=== PATIENT | female | born 1995 | race Caucasian/White ===

== ENCOUNTER 2017-07-29 22:25 | Observation (INO) | payer OTHER ==
[2017-07-29 23:19] LABS: Appearance,Urine Turbid (Clear); Bilirubin,Urine Negative (Negative); Glucose,Urine (UA) Negative (Negative); Ketones,Urine Negative (Negative); Leukocyte Esterase,Urine Large (Negative); Nitrite,Urine Negative (Negative); Particle Count 8803; Protein,Urine Negative (Negative); RBC,Urine 3 /hpf (0-5); Specific Gravity,Urine 1.016 (1.001-1.035); Squamous Epithelial Cell,Urine 49 /hpf (0-4); UA Billing (MACRO vs. MICRO) MICRO; Urobilinogen,Urine <2.0 mg/dL (<2.0); WBC,Urine 18 /hpf (0-5)
[2017-07-29] MEDS ORDERED: ONDANSETRON 4 MG/2 ML VIAL IVP STA (23:23)
[2017-07-29] MEDS ORDERED: SODIUM CHLORIDE 0.9% 500 ML IV STA (23:23)
[2017-07-29] MEDS ORDERED: MORPHINE SULFATE 10 MG/ML SYRINGE IVP ONE (23:23)
[2017-07-29 23:52] LABS: Basophils # (A) 0.1 k/uL (0-0.2); Basophils % (A) 1 %; CH 30.3; CHCM 33.3; Eosinophils # (A) 0.2 k/uL (0-0.7); Eosinophils % (A) 3 %; HDW 2.53; HGB 13.1 gm/dL (11.4-16.0); Luc # (Auto) 0.26; Luc % (Auto) 4; Lymphocytes # (A) 1.1 k/uL (1.0-4.8); Lymphocytes % (A) 15 %; MCH 29.9 pg (25.0-35.0); MCHC 32.7 g/dL (31.0-37.0); MCV 91.4 fL (80.0-100.0); Mean Platelet Volume 7.2; Monocytes # (A) 0.5 k/uL (0-1.0); Monocytes % (A) 7 %; Neutrophils % (A) 71 %; RBC 4.38 m/uL (3.80-5.40); RDW 12.4 % (11.5-15.5); WBC (Perox) 6.82
[2017-07-29 23:59] LABS: ALT 29 U/L (9-52); AST 20 U/L (14-36); Alkaline Phosphatase 51 U/L (38-126); Amylase 40 U/L (30-110); Anion Gap 10 mmol/L; Blood Urea Nitrogen 13 mg/dL (7-17); Calcium 9.8 mg/dL (8.4-10.2); Carbon Dioxide 26 mmol/L (22-30); Chloride 104 mmol/L (98-107); Glucose 97 mg/dL (74-99); Non-African American GFR(MDRD) >60 (>60 ml/min/1.73 sqM); Potassium 3.8 mmol/L (3.5-5.1); Sodium 140 mmol/L (137-145); Total Bilirubin 0.5 mg/dL (0.2-1.3); Total Protein 7.6 g/dL (6.3-8.2)
--- NOTE | 2017-07-30 00:11 | XR ---
EXAMINATION TYPE: XR KUB DATE OF EXAM: 07/29/2017 COMPARISON: NONE HISTORY: Abdominal pain for 2 days TECHNIQUE: 2 views FINDINGS: Bowel gas pattern is normal. There is no sign of intestinal obstruction or pneumoperitoneum . Fecal pattern is normal. There are no pathologic calcifications. Bony structures are intact. IMPRESSION: Nonacute abdomen.
--- NOTE | 2017-07-30 00:33 | ED ---
Abdominal Pain HPI - General Source: patient Mode of arrival: ambulatory Limitations: no limitations <Maggie Morgan - Last Filed: 07/30/17 02:37> <BismarksarinaRobbie - Last Filed: 07/30/17 03:03> - General Chief Complaint: Abdominal Pain Stated Complaint: Abd Pain Time Seen by Provider: 07/29/17 23:03 - History of Present Illness Initial Comments: 22-year-old female patient presents to the emergency department today for complaints of abdominal pain. Patient states that symptoms started approximately 3 days ago. States that the pain is periumbilical. She states it is sharp in nature. She states initially the pain was intermittent however for the last 3 hours the pain has been constant. She is currently rating it a 7 out of 10 on a pain scale. She denies ever having pain similar to this before. She states that she did go to urgent care yesterday and was diagnosed with constipation. She states that they did give her MiraLAX and another pill for gas. She states that she has taken 3 doses of the MiraLAX, has been having soft bowel movements, and her pain has persisted. She states that she has had blood in her stool this evening. She states she has been having soft bowel movements up to six times per day for the last few weeks, and now is passing only "red" stool. She states today she has been nauseated however has not vomited. She has been able to tolerate oral intake today. She denies any rectal pain or history of hemorrhoids. Patient denies any recent rash, fever, chills, shortness breath, chest pain, abdominal pain, nausea, vomiting, diarrhea , constipation, back pain, numbness, tingling, dizziness, weakness, hematuria, dysuria, urinary urgency, urinary frequency, headache, visual changes, or any other complaints. Patient's last menstrual period was 2 weeks ago. She denies any sick contacts or recent travel. (Maggie Morgan) - Related Data Home Medications Medication Instructions Recorded Confirmed No Known Home Medications [No 07/29/17 07/29/17 Known Home Medications] Allergies Allergy/AdvReac Type Severity Reaction Status Date / Time Penicillins Allergy Rash/Hives Verified 07/29/17 22:35 Review of Systems ROS Other: All systems not noted in ROS Statement are negative. <Maggie Morgan - Last Filed: 07/30/17 02:37> ROS Other: All systems not noted in ROS Statement are negative. <Robbie Jon - Last Filed: 07/30/17 03:03> ROS Statement: Those systems with pertinent positive or pertinent negative responses have been documented in the HPI. Past Medical History Past Medical History: No Reported History History of Any Multi-Drug Resistant Organisms: None Reported Past Surgical History: Tonsillectomy Past Psychological History: No Psychological Hx Reported Smoking Status: Never smoker Past Alcohol Use History: Occasional Past Drug Use History: None Reported <Maggie Morgan M - Last Filed: 07/30/17 02:37> General Exam Limitations: no limitations General appearance: alert, in no apparent distress, other (This is a well- developed, well-nourished adult female patient in no acute distress. Vital signs upon presentation were temperature 98.1F, pulse 100, respirations 18, blood pressure 139/80, pulse ox 98% on room air.) Eye exam: Present: normal appearance, PERRL, EOMI. Absent: scleral icterus, conjunctival injection, periorbital swelling ENT exam: Present: normal exam, normal oropharynx, mucous membranes moist Respiratory exam: Present: normal lung sounds bilaterally. Absent: respiratory distress, wheezes, rales, rhonchi, stridor Cardiovascular Exam: Present: regular rate, normal rhythm, normal heart sounds. Absent: systolic murmur, diastolic murmur, rubs, gallop, clicks GI/Abdominal exam: Present: soft, normal bowel sounds. Absent: distended, tenderness, guarding, rebound, rigid Back exam: Present: normal inspection. Absent: CVA tenderness (R), CVA tenderness (L) Neurological exam: Present: alert, oriented X3, CN II-XII intact Psychiatric exam: Present: normal affect, normal mood Skin exam: Present: warm, dry, intact, normal color. Absent: rash <Maggie Morgan M - Last Filed: 07/30/17 02:37> Vital Signs 07/29/17 07/30/17 22:33 02:57 Temperature 98.1 F Pulse Rate 100 87 Respiratory 18 18 Rate Blood Pressure 139/80 136/64 O2 Sat by Pulse 98 100 Oximetry Medical Decision Making - Lab Data Result diagrams: 07/29/17 23:30 07/29/17 23:30 - Radiology Data Radiology results: report reviewed, image reviewed <Maggie Morgan - Last Filed: 07/30/17 02:37> - Lab Data Result diagrams: 07/29/17 23:30 07/29/17 23:30 <Robbie Jon - Last Filed: 07/30/17 03:03> - Medical Decision Making 22-year-old female patient presents to the emergency department today for evaluation of diffuse abdominal pain 3 days. Patient also reported having frequent soft bowel movements daily over the last few weeks that turn to red colored stool today. Physical exam revealed diffuse abdominal tenderness with no guarding or rebound. Labs were unremarkable. Urinalysis was contaminated but culture was sent. KUB x-ray of the abdomen shows overall nonobstructive bowel gas pattern. CT of the abdomen and pelvis did show evidence of inflammatory changes and adenopathy involving the cecum with surrounding minimal fluid, however there was no bowel wall thickening to suggest inflammatory bowel disease so it is felt to be related to appendicitis. Appendix was upper limits of normal at [address] Jon did see and evaluate the patient. He did speak to Dr. Montgomery who accepts patient. We will start patient on IV IV Flagyl and Levaquin. We will provide pain and nausea management for her. (Maggie Morgan) 22-year-old female with no significant past medical history presents for evaluation of abdominal pain. Patient states she's had multiple soft bowel movements over the past 3 days. Abdominal pain is generalized. On examination patient is well-appearing, stable vital signs. She has mild diffuse tenderness to palpation, no rebound or guarding. Patient does have right lower quadrant tenderness, however her most significant tenderness is central epigastric. Laboratory studies reveal normal white blood cell count, stable hemoglobin. Hemoccult is positive, rectal exam reveals brown stool no gt blood. CT is obtained, this shows an 8 millimeter appendix with adjacent inflammatory changes and adenopathy. Patient is started on IV antibiotics, she will be admitted for surgical evaluation of appendicitis. (Robbie Jon) - Lab Data Lab Results 07/29/17 07/29/17 07/29/17 Range/Units 23:00 23:00 23:30 WBC (3.8-10.6) k/uL RBC (3.80-5.40) m/uL Hgb (11.4-16.0) gm/dL Hct (34.0-46.0) % MCV (80.0-100.0) fL MCH (25.0-35.0) pg MCHC (31.0-37.0) g/dL RDW (11.5-15.5) % Plt Count (150-450) k/uL Neutrophils % % Lymphocytes % % Monocytes % % Eosinophils % % Basophils % % Neutrophils # (1.3-7.7) k/uL Lymphocytes # (1.0-4.8) k/uL Monocytes # (0-1.0) k/uL Eosinophils # (0-0.7) k/uL Basophils # (0-0.2) k/uL Sodium 140 (137-145) mmol/L Potassium 3.8 (3.5-5.1) mmol/L Chloride 104 (98-107) mmol/L Carbon Dioxide 26 (22-30) mmol/L Anion Gap 10 mmol/L BUN 13 (7-17) mg/dL Creatinine 0.70 (0.52-1.04) mg/dL Est GFR (MDRD) Af Amer >60 (>60 ml/min/1.73 sqM) Est GFR (MDRD) Non-Af >60 (>60 ml/min/1.73 sqM) Glucose 97 (74-99) mg/dL Calcium 9.8 (8.4-10.2) mg/dL Total Bilirubin 0.5 (0.2-1.3) mg/dL AST 20 (14-36) U/L ALT 29 (9-52) U/L Alkaline Phosphatase 51 (38-126) U/L Total Protein 7.6 (6.3-8.2) g/dL Albumin 4.7 (3.5-5.0) g/dL Amylase 40 (30-110) U/L Lipase 159 (23-300) U/L Urine Color Light Yellow Urine Appearance Turbid H (Clear) Urine pH 6.0 (5.0-8.0) Ur Specific [place] 1.016 (1.001-1.035) Urine Protein Negative (Negative) Urine Glucose (UA) Negative (Negative) Urine Ketones Negative (Negative) Urine Blood Negative (Negative) Urine Nitrite Negative (Negative) Urine Bilirubin Negative (Negative) Urine Urobilinogen <2.0 (<2.0) mg/dL Ur Leukocyte Esterase Large H (Negative) Urine RBC 3 (0-5) /hpf Urine WBC 18 H (0-5) /hpf Ur Squamous Epith Cells 49 H (0-4) /hpf Urine HCG, Qual Not Detected (Not Detectd) Stool Occult Blood (Negative) 07/29/17 07/30/17 Range/Units 23:30 00:26 WBC 7.0 (3.8-10.6) k/uL RBC 4.38 (3.80-5.40) m/uL Hgb 13.1 (11.4-16.0) gm/dL Hct 40.0 (34.0-46.0) % MCV 91.4 (80.0-100.0) fL MCH 29.9 (25.0-35.0) pg MCHC 32.7 (31.0-37.0) g/dL RDW 12.4 (11.5-15.5) % Plt Count 210 (150-450) k/uL Neutrophils % 71 % Lymphocytes % 15 % Monocytes % 7 % Eosinophils % 3 % Basophils % 1 % Neutrophils # 5.0 (1.3-7.7) k/uL Lymphocytes # 1.1 (1.0-4.8) k/uL Monocytes # 0.5 (0-1.0) k/uL Eosinophils # 0.2 (0-0.7) k/uL Basophils # 0.1 (0-0.2) k/uL Sodium (137-145) mmol/L Potassium (3.5-5.1) mmol/L Chloride (98-107) mmol/L Carbon Dioxide (22-30) mmol/L Anion Gap mmol/L BUN (7-17) mg/dL Creatinine (0.52-1.04) mg/dL Est GFR (MDRD) Af Amer (>60 ml/min/1.73 sqM) Est GFR (MDRD) Non-Af (>60 ml/min/1.73 sqM) Glucose (74-99) mg/dL Calcium (8.4-10.2) mg/dL Total Bilirubin (0.2-1.3) mg/dL AST (14-36) U/L ALT (9-52) U/L Alkaline Phosphatase (38-126) U/L Total Protein (6.3-8.2) g/dL Albumin (3.5-5.0) g/dL Amylase (30-110) U/L Lipase (23-300) U/L Urine Color Urine Appearance (Clear) Urine pH (5.0-8.0) Ur Specific [place] (1.001-1.035) Urine Protein (Negative) Urine Glucose (UA) (Negative) Urine Ketones (Negative) Urine Blood (Negative) Urine Nitrite (Negative) Urine Bilirubin (Negative) Urine Urobilinogen (<2.0) mg/dL Ur Leukocyte Esterase (Negative) Urine RBC (0-5) /hpf Urine WBC (0-5) /hpf Ur Squamous Epith Cells (0-4) /hpf Urine HCG, Qual (Not Detectd) Stool Occult Blood Positive H (Negative) - Radiology Data 2 views of the abdomen showed bowel gas pattern is normal. There is no sign of intestinal obstruction or pneumoperitoneum. Fecal pattern is normal. There is no pathological calcifications. Bony structures are intact. Impression by Dr. South shows nonacute abdomen. CT of the abdomen and pelvis with contrast report reviewed in its entirety. Impression by Dr. South shows appendix is upper limit of normal size. There is however evidence of inflammatory changes and adenopathy involving the cecum with surrounding minimal fluid. I see no intestinal wall thickening to suggest inflammatory bowel disease and therefore this appearance is most likely related to appendicitis. (Maggie Morgan) Disposition Decision to Admit Reason: Admit from EC Decision Date: 07/30/17 Decision Time: 02:25 <Maggie Morgan - Last Filed: 07/30/17 02:37> <Robbie Jon - Last Filed: 07/30/17 03:03> Clinical Impression: Appendicitis Disposition: ADMITTED IP TO THIS [facility] Condition: Serious
[2017-07-30] MEDS ORDERED: RX INFO: IV CONTRAST WAS GIVEN 1 EACH MISC MISCELLANE PRN (00:53)
[2017-07-30] MEDS ORDERED: methylPREDNISolone SOD SUCCI 125 MG/2 ML VIAL IV STA (00:53)
[2017-07-30] MEDS ORDERED: MORPHINE SULFATE 10 MG/ML SYRINGE IVP ONE (01:14)
--- NOTE | 2017-07-30 01:30 | CT ---
EXAMINATION TYPE: CT abdomen pelvis w con DATE OF EXAM: 07/30/2017 COMPARISON: NONE HISTORY: abd pain CT DLP: 468.40 mGycm Automated exposure control for dose reduction was used. TECHNIQUE: Helical acquisition of images was performed from the lung bases through the pelvis. CONTRAST: Performed without Oral Contrast and with IV Contrast, patient injected with 100 mL of Omnipaque 300. FINDINGS: Lung bases are clear. There is no pleural effusion. Heart size is normal. Liver spleen pancreas gallbladder appear normal. Bile ducts are not dilated. There is no adrenal mass. Kidneys show satisfactory contrast opacification. There is no hydronephrosi s. Ureters are not dilated. There is no retroperitoneal adenopathy. There is no ascites. Bladder dist ends smoothly. There is a small amount of free fluid in the cul-de-sac. Uterus is anteverted. There are multiple enlarged lymph nodes medial to the cecum. These measure up to 12 mm. There is a sm all amount of free fluid around the cecum. There is minimal fluid in the right paracolic gutter and a round the terminal ileum. Appendix is slightly distended and measures up to 8 mm in diameter. IMPRESSION: APPENDIX IS UPPER LIMIT OF NORMAL SIZE. THERE IS HOWEVER EVIDENCE OF INFLAMMATORY CHANGES AND ADENOPA THY INVOLVING THE CECUM WITH SURROUNDING MINIMAL FLUID. I SEE NO INTESTINAL WALL THICKENING TO SUGGES T INFLAMMATORY BOWEL DISEASE AND THEREFORE THIS APPEARANCE IS MOST LIKELY RELATED TO APPENDICITIS.
[2017-07-30] MEDS ORDERED: NALOXONE 0.4 MG/ML 1 ML VIAL IV PRN (02:17)
[2017-07-30] MEDS ORDERED: ONDANSETRON 4 MG/2 ML VIAL IVP PRN (02:23)
[2017-07-30] MEDS ORDERED: MORPHINE SULFATE 10 MG/ML SYRINGE IV PRN (02:23)
[2017-07-30] MEDS ORDERED: LEVOFLOXACIN 500MG-D5W PMX 500 MG in DEXTROSE/WATER 1 100ML.BAG IVPB STA (02:24)
[2017-07-30] MEDS ORDERED: LEVOFLOXACIN 250MG-D5W PMX 500 MG in DEXTROSE/WATER 1 50ML.BAG IVPB SCH (02:30)
[2017-07-30] MEDS: SODIUM CHLORIDE 0.9% 1,000 ML IV SCH ×2 (02:34→19:14)
[2017-07-30] MEDS: metroNIDAZOLE-NS PMX 500 MG in SALINE 1 100ML.BAG IVPB SCH ×4 (02:34→20:51)
[2017-07-30] MEDS: MORPHINE SULFATE 10 MG/ML SYRINGE IVP PRN ×2 (03:35→19:49)
[2017-07-30 03:56] VITALS: BMI 25.1
--- NOTE | 2017-07-30 08:05 | P.GSHP ---
History of Present Illness H&P Date: 07/30/17 The patient is a 23-year-old female who states that approximately 5 days ago she began having mid abdominal discomfort. The pain is crampy in nature and she was seen in an outpatient clinic. She was told that she was most likely constipated and she was given medication for this. The pain continued however, she was had multiple bowel movements. The pain was crampy in nature and in the midepigastric area. The patient then began having bloody bowel movements and presented to the emergency room. In the emergency room a CAT scan was performed. Initial review of the CAT scan stated the appendix was the upper limit of normal and inflammatory changes were noted around the cecum with adenopathy medial to the cecum. The CAT scan was reviewed with Dr. Reaves. There was no appendicolith, and the fact that the adenopathy was medial to the cecum and not necessarily adjacent to the appendix was noted. After review there was question as to whether this may represent inflammatory bowel disease rather than appendicitis. The patient states that she has some nausea and no vomiting. She had some chills but no fever. The patient states that the pain is much decreased at this time. She continues to have some discomfort in the midepigastric area when asked to jump up and down. There is no family history of inflammatory bowel disease. She states that she is very hungry. She has had no further bloody bowel movements. Patient's last menstrual period was 2 weeks ago. Past surgical history: 1. Tonsillectomy Past medical history: Negative Medications: Negative ALLERGIES: Penicillin Review of systems: HEENT: Negative Lungs: Negative Heart: Negative GI: As above : Negative - Constitutional Constitutional: Reports as per HPI - Cardiovascular Cardiovascular: Reports as per HPI - Respiratory Respiratory: Reports as per HPI - Gastrointestinal Gastrointestinal: Reports as per HPI - Genitourinary (Female) Genitourinary: Reports as per HPI - Genitourinary (Male) Genitourinary: Reports as per HPI Past Medical History Past Medical History: No Reported History History of Any Multi-Drug Resistant Organisms: None Reported Past Surgical History: No Surgical Hx Reported, Tonsillectomy Past Psychological History: No Psychological Hx Reported Smoking Status: Never smoker Past Alcohol Use History: Occasional Past Drug Use History: None Reported - Past Family History Mother Family Medical History: No Reported History Medications and Allergies Home Medications Medication Instructions Recorded Confirmed Type No Known Home Medications [No 07/29/17 07/29/17 History Known Home Medications] Allergies Allergy/AdvReac Type Severity Reaction Status Date / Time Penicillins Allergy Rash/Hives Verified 07/29/17 22:35 Surgical - Exam Vital Signs Temp Pulse Resp BP Pulse Ox 98.1 F 100 18 139/80 98 07/29/17 22:33 07/29/17 22:33 07/29/17 22:33 07/29/17 22:33 07/29/17 22:33 - General well developed, well nourished, no distress - Eyes normal ocular movement - ENT normal pinna, normal nares, no hearing loss - Neck no masses, trachea midline, no lymphadectomy, no venous distension - Respiratory normal expansion, normal respiratory effort, clear to auscultation - Cardiovascular Rhythm: regular Heart Sounds: normal: S1, S2 - Abdomen No guarding Abdomen is very soft Minimal tenderness to deep palpation right upper quadrant greater than right lower quadrant Minimal tenderness periumbilical area Abdomen: soft, bowel sounds - Rectum Rectal examination performed no blood on examining finger Rectum: normal sphincter tone, no hemorrhoids, no tenderness, no masses, no bleeding - Integumentary no rash - Psychiatric oriented to time, oriented to person, oriented to place, speech is normal Results - Labs 07/29/17 23:30 07/29/17 23:30 Abnormal Lab Results - Last 24 Hours (Table) 07/29/17 07/30/17 Range/Units 23:00 00:26 Urine Appearance Turbid H (Clear) Ur Leukocyte Esterase Large H (Negative) Urine WBC 18 H (0-5) /hpf Ur Squamous Epith Cells 49 H (0-4) /hpf Stool Occult Blood Positive H (Negative) Diabetes panel 07/29/17 Range/Units 23:30 Sodium 140 (137-145) mmol/L Potassium 3.8 (3.5-5.1) mmol/L Chloride 104 (98-107) mmol/L Carbon Dioxide 26 (22-30) mmol/L BUN 13 (7-17) mg/dL Creatinine 0.70 (0.52-1.04) mg/dL Glucose 97 (74-99) mg/dL Calcium 9.8 (8.4-10.2) mg/dL AST 20 (14-36) U/L ALT 29 (9-52) U/L Alkaline Phosphatase 51 (38-126) U/L Total Protein 7.6 (6.3-8.2) g/dL Albumin 4.7 (3.5-5.0) g/dL Calcium panel 07/29/17 Range/Units 23:30 Calcium 9.8 (8.4-10.2) mg/dL Albumin 4.7 (3.5-5.0) g/dL Pituitary panel 07/29/17 Range/Units 23:30 Sodium 140 (137-145) mmol/L Potassium 3.8 (3.5-5.1) mmol/L Chloride 104 (98-107) mmol/L Carbon Dioxide 26 (22-30) mmol/L BUN 13 (7-17) mg/dL Creatinine 0.70 (0.52-1.04) mg/dL Glucose 97 (74-99) mg/dL Calcium 9.8 (8.4-10.2) mg/dL Adrenal panel 07/29/17 Range/Units 23:30 Sodium 140 (137-145) mmol/L Potassium 3.8 (3.5-5.1) mmol/L Chloride 104 (98-107) mmol/L Carbon Dioxide 26 (22-30) mmol/L BUN 13 (7-17) mg/dL Creatinine 0.70 (0.52-1.04) mg/dL Glucose 97 (74-99) mg/dL Calcium 9.8 (8.4-10.2) mg/dL Total Bilirubin 0.5 (0.2-1.3) mg/dL AST 20 (14-36) U/L ALT 29 (9-52) U/L Alkaline Phosphatase 51 (38-126) U/L Total Protein 7.6 (6.3-8.2) g/dL Albumin 4.7 (3.5-5.0) g/dL - Imaging CT scan - abdomen: report reviewed, image reviewed CT scan - pelvis: report reviewed, image reviewed Assessment and Plan Plan: Impression/plan: 1. 22-year-old white female with abdominal pain early appendicitis versus inflammatory bowel disease 2. Patient feeling better at this time The patient's computed tomography scan was reviewed with Dr. Reaves from radiology. Although the patient's appendix was at the upper limits of normal size the patient was noted to have adenopathy medial to the cecum and not adjacent to the appendix. Additionally there was some concern that this may be inflammatory bowel disease. Clinically the patient is not presenting like appendicitis. Bloody diarrhea, improvement in pain at this time, no pain in the right lower quadrant, and the patient complaining of being hungry. Although this could be an early appendicitis I more concerned that this is representative personal service of some inflammatory bowel changes and at had a discussion with the patient and her mother regarding this. At this time they wish to avoid operation and we will obtain a GI consultation. The patient does not have an acute surgical abdomen. Therefore, this is a reasonable approach and we will follow her closely clinically. Plan: 1. GI consultation 2. Will start diet and advance as tolerated 3. Repeat CBC in a.m.
--- NOTE | 2017-07-30 12:32 | CONS ---
CONSULTATION DATE OF SERVICE: 07/30/2017 REASON FOR CONSULTATION: The patient is a 22-year-old pleasant young lady, came to the hospital emergency room complaining of severe lower abdominal pain associated with diarrhea that started about 5 days ago. The symptoms started 5 days ago, initially had abdominal pain, mostly in the right lower quadrant area/left lower quadrant area on and off, associated with 2 loose bowel movements. The next day she felt the same. No fever, chills, or night sweats. On Monday morning she went to the urgent care clinic. She had x-rays done in the urgent care and was told she was constipated and given some stool softeners and was discharged home. However, that night, her symptoms continued to progressively get worse and by this point she was extremely nauseated, the pain was more intense in severity, continuing to increase, and had more diarrhea. She came into the emergency room and had a CT of the abdomen and pelvis done and thought it was appendicitis and Dr. Waleska Montgomery was consulted. The patient was evaluated by Dr. Montgomery this morning who does not think she has appendicitis based on the CT scan findings and requested a consult from GI. In the meantime, the patient states that last night after she came to the emergency room she started having bright red blood in her stool. She had about 4 or 5 of these episodes which happened about every half an hour apart with worsening lower abdominal pain. Since being admitted to the hospital she did not have any further episodes of bleeding. This morning she camp had no bowel movement yet. She feels that the abdominal pain is better. The patient was started on empiric antibiotics with Cipro and Flagyl. No fever, chills, or night sweats. Overall, she is feeling better. She had some breakfast this morning and tolerating well. Never had these symptoms in the past. No family history of inflammatory bowel disease. PAST MEDICAL HISTORY: Unremarkable. PAST SURGICAL HISTORY: Tonsillectomy. MEDICATIONS: No medications at home. ALLERGIES: There are no known drug allergies. SOCIAL HISTORY: No smoking or alcohol use family history unremarkable. REVIEW OF SYSTEMS: Cardiopulmonary: No chest pain or shortness of breath. : No dysuria or hematuria. Musculoskeletal: Unremarkable. Skin: Unremarkable. Endocrine: Unremarkable. Psychiatric: Unremarkable. Neurology: Unremarkable. ENT: Vision unremarkable. Constitutional: No recent weight loss. No fever, chills, night sweats. ALLERGIES: PENICILLIN. PHYSICAL EXAMINATION: Blood pressure 139/80, pulse rate 100, temperature 98.1. HEENT examination unremarkable. Conjunctivae pink. Sclerae anicteric. Oral cavity, no lesions. no FLAVIO or lymph node enlargement. Chest clear to auscultation. Heart regular rate and rhythm. Abdomen is soft. Bowel sounds are positive. No organomegaly. Extremities, no pedal edema. Skin no rashes. Neurologic, alert and oriented x3. No focal deficits. LABS: Done at the time of admission the hospital, WBC count is 7, hemoglobin 13.1, platelets normal. Basic metabolic panel is within normal limits. Urinalysis showed leukocyte esterase that was large. Stool occult blood was positive. CT of the abdomen showed fluid around the tip of the cecum and distal small bowel as well as the right pericolic gutter. No appendicolith. Some lymphadenopathy in the ascending colon. IMPRESSION: The patient is a young lady who presented to the hospital with lower abdominal pain and diarrhea for the last 5 days duration, which became bloody last night and had about at least 5 or 6 bright red blood per rectum. CT of the abdomen showed mild thickening in the base of the cecum, suspicious for colitis. Inflammatory bowel disease cannot be ruled out. The patient was evaluated by Dr. Montgomery who does not think she has appendicitis. Presently on broad-spectrum antibiotics, doing well. Her symptoms are more suggestive of an acute infectious colitis at the present time. Doubt inflammatory bowel disease. RECOMMENDATIONS: 1. Continue IV antibiotics with Cipro and Flagyl. 2. Will send stool for cultures. 3. Repeat CBC in the morning. 4. Advance diet as tolerated. 5. If she remains well she can be discharged home tomorrow with outpatient follow up in 2 weeks. MMODL / IJN: [id number] /
[2017-07-31] MEDS: MORPHINE SULFATE 10 MG/ML SYRINGE IVP PRN (02:15)
[2017-07-31] MEDS: metroNIDAZOLE-NS PMX 500 MG in SALINE 1 100ML.BAG IVPB SCH (02:16)
[2017-07-31 02:49] VITALS: PULSE 72
[2017-07-31] MEDS ORDERED: LEVOFLOXACIN 500MG-D5W PMX 500 MG in DEXTROSE/WATER 1 100ML.BAG IVPB SCH (03:00)
[2017-07-31 05:41] LABS: Aty Lym Flag Slight; Basophils # (A) 0.1 k/uL (0-0.2); Basophils % (A) 1 %; CHCM 32.5; Eosinophils % (A) 1 %; HCT 34.1 % (34.0-46.0); HDW 2.58; HGB 10.7 gm/dL (11.4-16.0); Luc # (Auto) 0.31; Luc % (Auto) 5; Lymphocytes # (A) 1.4 k/uL (1.0-4.8); Lymphocytes % (A) 22 %; MCH 29.1 pg (25.0-35.0); MCHC 31.4 g/dL (31.0-37.0); MCV 92.6 fL (80.0-100.0); Mean Platelet Volume 8.3; Monocytes # (A) 0.5 k/uL (0-1.0); Monocytes % (A) 7 %; Neutrophils # (A) 4.2 k/uL (1.3-7.7); Neutrophils % (A) 65 %; RBC 3.68 m/uL (3.80-5.40); RDW 12.6 % (11.5-15.5); WBC 6.5 k/uL (3.8-10.6); WBC (Perox) 6.62
[2017-07-31 06:05] LABS: Manual Review Performed; Reactive Lymphocytes Present
--- NOTE | 2017-07-31 07:36 | P.PN ---
Subjective Progress Note Date: 07/31/17 Patient is a 22-year-old white female admitted with abdominal discomfort, bloody diarrhea, and CAT scan findings consistent with enlarged lymph nodes medial to the cecum and questionable borderline dilated appendix. The patient' s CAT scan was reviewed with radiology and there was some concern that this may be an inflammatory process separate from appendicitis. It was opted to treat the patient conservatively. The patient at this time has marked improvement in her abdominal discomfort. She is tolerating diet without difficulty. She was seen in consultation by Dr. Curry Arias who suspected that she may have acute infectious colitis. The patient has had no further bloody bowel movements. Objective - Vital Signs Vital signs: Vital Signs Temp 97.7 F 07/31/17 02:00 Pulse 72 07/31/17 02:00 Resp 16 07/31/17 02:00 BP 101/57 07/31/17 02:00 Pulse Ox 99 07/31/17 02:00 Intake & Output 07/30/17 07/31/17 07/31/17 18:59 06:59 18:59 Intake Total 1810 Balance 1810 Intake: Intake, IV Titration 1270 Amount Levofloxacin 500Mg-D5w 100 Pmx 500 mg In Dextrose/ Water 1 100ml.bag @ 100 mls/hr IVPB Q24H [facility] Rx#: [id number] Sodium Chloride 0.9% 1, 970 000 ml @ 75 mls/hr IV . [id number] [facility] Rx#:[id number] metroNIDAZOLE-NS PMX 500 200 mg In Saline 1 100ml.bag @ 100 mls/hr IVPB Q6H [facility] Rx#:[id number] Oral 540 Other: # Voids 2 2 - Constitutional General appearance: Present: average body habitus - Respiratory Respiratory: bilateral: CTA - Cardiovascular Rhythm: regular Heart sounds: normal: S1, S2 - Gastrointestinal Gastrointestinal Comment(s): No guarding General gastrointestinal: Present: decreased bowel sounds, soft - Psychiatric Psychiatric: Present: A&O x's 3, appropriate affect, intact judgment & insight - Labs CBC & Chem 7: 07/31/17 05:32 07/29/17 23:30 Labs: Abnormal Lab Results - Last 24 Hours (Table) 07/31/17 Range/Units 05:32 RBC 3.68 L (3.80-5.40) m/uL Hgb 10.7 L (11.4-16.0) gm/dL Microbiology - Last 24 Hours (Table) 07/29/17 23:00 Urine Culture - Preliminary Urine,Voided Assessment and Plan Plan: Impression/plan: 1. 22-year-old white female with abdominal pain probable infectious colitis 2. Patient feeling better at this time 3. Appreciate consultation from GI 4. Tolerating diet without difficulty 5. Improvement in abdominal discomfort Plan: 1. Patient's WBC 6.5, hemoglobin 10.7, no evidence of active bleeding at this time 2. Follow up with GI in 2 weeks 3. Follow-up with Dr. Jose Mann in 1 week CBC prior to appointment
--- NOTE | 2017-07-31 07:44 | P.DS ---
Providers Date of admission: 07/30/17 02:25 Attending physician: Karla Montgomery Consults: 07/30/17 08:05 Consult Physician Routine Consulting Provider: Chantel Arias Consult Reason/Comments: Rule out inflammatory bowel disease Do you want consulting provider notified?: Yes, Notify in am Primary care physician: Rafael Bullock [facility] Course: Patient is a 22-year-old white female admitted with abdominal pain. Her symptoms have resolved and soft tissue most likely had infectious colitis. She was seen during this consultation by GI as well as surgery. The patient was instructed if her pain recurred turns that she should call or go to the emergency room. She is going to be discharged home on antibiotics and followed as an outpatient with GI and surgery. Patient Condition at Discharge: Serious Plan - Discharge Summary New Discharge Prescriptions: No Action Ranitidine HCl [Zantac] 150 mg PO BID Polyethylene Glycol 3350 [Miralax] 17 gm PO BID Discharge Medication List Polyethylene Glycol 3350 [Miralax] 17 gm PO BID 07/30/17 [History] Ranitidine HCl [Zantac] 150 mg PO BID 07/30/17 [History] Follow up Appointment(s)/Referral(s): Rafael Bullock DO [Primary Care Provider] - 1-2 days Chantel Arias MD [STAFF PHYSICIAN] - 2 Weeks Karla Montgoemry MD [STAFF PHYSICIAN] - 1 Week Activity/Diet/Wound Care/Special Instructions: Patient to call if she has increased abdominal pain or bloody diarrhea. She is being discharged home on Cipro and Flagyl Discharge Disposition: HOME SELF-CARE
[2017-07-31 08:34] VITALS: BP 95/47; RESP 20; TEMP 98.2
--- NOTE | 2017-07-31 08:42 | P.PN ---
Subjective Progress Note Date: 07/31/17 Principal diagnosis: Colitis Admitted with suspected self-limiting colitis. No diarrhea since Monday. Abdominal pain resolved. Tolerating diet. Afebrile. Stool studies not obtained secondary to lack of diarrhea. Objective - Vital Signs Vital signs: Vital Signs Temp 98.2 F 07/31/17 08:02 Pulse 72 07/31/17 08:02 Resp 20 07/31/17 08:02 BP 95/47 07/31/17 08:02 Pulse Ox 98 07/31/17 08:02 Intake & Output 07/30/17 07/31/17 07/31/17 18:59 06:59 18:59 Intake Total 1810 200 Balance 1810 200 Intake: Intake, IV Titration 1270 Amount Levofloxacin 500Mg-D5w 100 Pmx 500 mg In Dextrose/ Water 1 100ml.bag @ 100 mls/hr IVPB Q24H [facility] Rx#: [id number] Sodium Chloride 0.9% 1, 970 000 ml @ 75 mls/hr IV . [id number] [facility] Rx#:[id number] metroNIDAZOLE-NS PMX 500 200 mg In Saline 1 100ml.bag @ 100 mls/hr IVPB Q6H [facility] Rx#:[id number] Oral 540 200 Other: # Voids 2 2 - Exam General appearance: The patient is alert, oriented, in no acute distress. HET: Head is normocephalic and atraumatic. Pupils are equal and reactive. Oropharynx is clear without lesions. Neck: Supple without lymphadenopathy. Trachea midline. Heart: S1 S2. Regular rate and rhythm. Lungs: No crackles or wheezes are heard. Abdomen: Soft, nontender, nondistended with bowel sounds. No peritoneal signs. No palpable organomegaly or masses. Extremities: Normal skin color and turgor. No cyanosis, rash, ulceration, clubbing, or edema. Radial and pedal pulses are 2/4 bilaterally. Neurological: No focal deficits. Strength and sensation are grossly intact. - Labs CBC & Chem 7: 07/31/17 05:32 07/29/17 23:30 Labs: Abnormal Lab Results - Last 24 Hours (Table) 07/31/17 Range/Units 05:32 RBC 3.68 L (3.80-5.40) m/uL Hgb 10.7 L (11.4-16.0) gm/dL Microbiology - Last 24 Hours (Table) 07/29/17 23:00 Urine Culture - Preliminary Urine,Voided Assessment and Plan (1) Colitis Narrative/Plan: Suspect self-limiting infectious possible inflammatory. Doubt inflammatory bowel disease. Overall symptoms are improved. Current Visit: Yes Status: Acute Code(s): K52.9 - NONINFECTIVE GASTROENTERITIS AND COLITIS, UNSPECIFIED SNOMED Code(s): 73261482 Plan: Discharge per general surgery. Follow-up GI as needed. Timothy Flagrocío provided on discharge by general surgery. Assessment and plan a care discussed with Dr. Arias
== END 2017-07-31 08:44 | disposition home or self-care (01) ==
LOC: EC 22:25 → SUPCPDRO 22:25 → 6PED 07-30 02:25
PROVIDERS: ADMIT Surgery; ATTEND Surgery
DX: R10.13 Epigastric pain (principal); R19.7 Diarrhea, unspecified; K92.1 Melena; R11.0 Nausea; R10.84 Generalized abdominal pain; R10.31 Right lower quadrant pain; R68.83 Chills (without fever); Z88.0 Allergy status to penicillin; R10.33 Periumbilical pain
CPT/HCPCS: 99285; 96375 ×5; 96361 ×4; 96376 ×4; 96365 ×2; 96367 ×2; 96366 ×2; 36415 ×2; 80053; 82150; 83690; 85025 ×2; 82272; 81001; 81025; 87086; 74000; 74177; G0378 ×2; J2930; J2270 ×3; J2405; J1956 ×2; Q9967